=== PATIENT | female | born 1995 | race Hispanic/Latino ===

== ENCOUNTER 2021-06-12 08:03 | Outpatient (CLI) | payer BC ==
[2021-06-12 22:40] LABS: SARS-CoV-2 PCR by NAA Not Detected (NotDetected)
== END 2021-06-12 08:04 | disposition home or self-care (01) ==
LOC: CSHLAB 08:03
PROVIDERS: ATTEND Obstetrics & Gynecology
DX: Z20.822 Contact with and (suspected) exposure to COVID-19 (principal)
CPT/HCPCS: U0003; U0005

== ENCOUNTER 2021-06-15 08:11 | Inpatient (IN) | payer BC ==
[~2021-06-15 08:11] MED LIST: Bupivacaine 0.25% HCL 30 ML VIAL ONE; Lidocaine 2% MPF 10 ML AMP (For Epidural Use) ONE
[2021-06-15] MEDS ORDERED: Ondansetron PF 4 MG/2 ML Vial IVP PRN (18:17)
[2021-06-15] MEDS ORDERED: Lactated Ringer's 1,000 ML IV SCH (18:17)
[2021-06-15] MEDS ORDERED: Diphenoxylate HCl/Atropine Tablet PO PRN ×2 (18:17)
[2021-06-15] MEDS ORDERED: Docusate 100 MG CAP PO PRN (18:17)
[2021-06-15] MEDS ORDERED: NS w/ Oxytocin 30 units 500 ML IVPB SCH (18:17)
[2021-06-15] MEDS ORDERED: Ibuprofen 800 MG TAB PO PRN (18:17)
[2021-06-15] MEDS ORDERED: Zolpidem Tartrate 5 MG TAB PO PRN (18:17)
[2021-06-15] MEDS ORDERED: NS w/ Oxytocin 30 units 500 ML IV SCH (18:17)
[2021-06-15] MEDS ORDERED: Promethazine HCl 25 MG/ML VIAL IM PRN (18:17)
[2021-06-15] MEDS ORDERED: hydrALAZINE 20 MG/ML VIAL SLOW IVP PRN (18:17)
[2021-06-15] MEDS ORDERED: Acetaminophen 500 MG TAB PO PRN (18:17)
[2021-06-15] MEDS ORDERED: Lidocaine 1% (PF) 30 ML VIAL SC PRN (18:17)
[2021-06-15] MEDS ORDERED: HYDROcodone/Acetaminophen 5/325 mg Tablet PO PRN ×2 (18:17)
[2021-06-15] MEDS ORDERED: Misoprostol 200 MCG TAB PR PRN (18:17)
[2021-06-15 18:48] VITALS: BMI 38.4
[2021-06-15] MEDS: Misoprostol 100 MCG TAB VAG SCH (19:19)
[2021-06-15 20:40] LABS: Hemoglobin 12.4 g/dL (12.0-15.5); Mean Corpuscular HGB CONC 34.6 g/dL (32.0-36.0); Mean Corpuscular Hemoglobin 29.3 pg (27.0-33.0); Mean Corpuscular Volume 84.6 fl (81.6-98.3); Platelet Count 214 10x3/uL (150-450); RBC Distribution Width 13.6 % (11.5-14.5); Red Blood Cell (RBC) Count 4.23 10x6/uL (3.90-5.03); White Blood Cell (WBC) Count 11.5 10x3/uL (3.5-10.5)
[2021-06-15 21:10] LABS: HIV (1/2) Antibody/Antigen Non-Reactive (NonReactive); HIV 1/2 INDEX 0.09 S/CO (<1.00); Hep B Surf Ag Non-Reactive S/CO (NonReactive); Syphilis Antibody Nonreactive (Nonreactive); Syphilis Antibody Index 0.04 S/CO (<1.00 Non-Reactive)
[2021-06-15 21:24] LABS: HBSAg Index 0.18 S/CO (0-0.99)
[2021-06-15] MEDS: Butorphanol Tartrate 1 MG/ML VIAL SLOW IVP PRN (23:39)
[2021-06-16] MEDS: Butorphanol Tartrate 1 MG/ML VIAL SLOW IVP PRN ×3 (04:23→19:25)
[2021-06-16] MEDS: Misoprostol 100 MCG TAB VAG SCH (07:37)
[2021-06-16] MEDS: NS w/ Oxytocin 30 units 500 ML IV SCH (11:16)
[2021-06-16] MEDS ORDERED: Fentanyl 2 mcg/Bup 0.1% Cadd 100 ML ONE (20:48)
[2021-06-17] MEDS ORDERED: Fentanyl 2 mcg/Bup 0.1% Cadd 100 ML ONE (04:19)
[2021-06-17] MEDS ORDERED: Ondansetron PF 4 MG/2 ML Vial IVP PRN ×2 (05:18→13:22)
[2021-06-17] MEDS ORDERED: Hydrocerin (Eucerin) Cream 120 gm Jar TOP PRN (05:18)
[2021-06-17] MEDS ORDERED: ePHEDrine Sulfate 50 MG/10 ML VIAL SLOW IVP PRN (05:18)
[2021-06-17] MEDS ORDERED: Lactated Ringer's 500 ML IV PRN (05:18)
[2021-06-17] MEDS ORDERED: Acetaminophen 325 MG TAB PO PRN (05:18)
[2021-06-17] MEDS ORDERED: Naloxone HCl 0.4 mg/ml Vial IVP PRN ×2 (05:18)
[2021-06-17] MEDS ORDERED: Promethazine HCl 25 MG/ML VIAL IM PRN (05:18)
[2021-06-17] MEDS ORDERED: diphenhydrAMINE 50 MG/ML VIAL IVP PRN (05:18)
[2021-06-17] MEDS ORDERED: Fentanyl 2 mcg/Bupivacaine 0.1% Cassette 100 ML EPIDURAL SCH (05:30)
[2021-06-17] MEDS ORDERED: Communication Order-Pharmacy FS SCH (05:30)
[2021-06-17] MEDS ORDERED: Misoprostol 200 MCG TAB ONE (11:14)
[2021-06-17] MEDS ORDERED: Methylergonovine 0.2 MG/ML VIAL ONE (11:15)
[2021-06-17] MEDS ORDERED: Ampicillin 2 GM VIAL ONE (12:55)
[2021-06-17] MEDS ORDERED: Ampicillin 2 GM in Sodium Chloride 0.9% 100 ML IVPB SCH (13:00)
[2021-06-17] MEDS ORDERED: Acetaminophen 500 MG TAB PO SCH (13:00)
[2021-06-17] MEDS ORDERED: Benzocaine-Menthol 82.5 ML CAN TOP PRN (13:22)
[2021-06-17] MEDS ORDERED: Preparation H Ointment 28 GM TUBE PR PRN (13:22)
[2021-06-17] MEDS ORDERED: Milk Of Magnesia 30 ML UDCUP PO PRN (13:22)
[2021-06-17] MEDS ORDERED: Bisacodyl 10 MG SUPP PR PRN (13:22)
[2021-06-17] MEDS ORDERED: diphenhydrAMINE 25 MG CAP PO PRN (13:22)
[2021-06-17] MEDS ORDERED: Misoprostol 200 MCG TAB VAG PRN (13:22)
[2021-06-17] MEDS ORDERED: Boostrix 0.5 ML (Tdap) VIAL IM ONE (13:22)
[2021-06-17] MEDS ORDERED: hydrALAZINE 20 MG/ML VIAL SLOW IVP PRN ×2 (13:22→13:27)
[2021-06-17] MEDS ORDERED: Lanolin Ointment 7 GM TUBE TOP PRN (13:22)
[2021-06-17] MEDS ORDERED: NS w/ Oxytocin 30 units 500 ML IV SCH (13:30)
[2021-06-17] MEDS: NS w/ Oxytocin 30 units 500 ML IV SCH (13:51)
[2021-06-17] MEDS: Ibuprofen 800 MG TAB PO SCH ×2 (15:43→23:23)
[2021-06-17] MEDS: Ferrous Sulfate 325 MG TAB PO SCH (18:53)
[2021-06-17] MEDS ORDERED: HYDROcodone/Acetaminophen 5/325 mg Tablet PO PRN (19:19)
[2021-06-17] MEDS: Docusate Calcium (SURFAK) 240 MG CAP PO SCH (23:23)
[2021-06-18] MEDS ORDERED: Enoxaparin Sodium 40 MG/0.4 ML SYRINGE SC SCH ×3 (01:00→21:00)
[2021-06-18 05:17] LABS: Hemoglobin 10.4 g/dL (12.0-15.5); Mean Corpuscular Hemoglobin 29.8 pg (27.0-33.0); Mean Corpuscular Volume 87.7 fl (81.6-98.3); Mean Platelet Volume 10.9 fl (7.4-10.4); Platelet Count 171 10x3/uL (150-450); RBC Distribution Width 13.7 % (11.5-14.5); Red Blood Cell (RBC) Count 3.49 10x6/uL (3.90-5.03); White Blood Cell (WBC) Count 14.7 10x3/uL (3.5-10.5)
[2021-06-18] MEDS: Ibuprofen 800 MG TAB PO SCH ×3 (06:00→21:23)
[2021-06-18] MEDS: Ferrous Sulfate 325 MG TAB PO SCH ×2 (08:52→16:49)
[2021-06-18] MEDS: Prenatal Vitamin 1 TAB PO SCH (08:55)
[2021-06-18] MEDS: Docusate Calcium (SURFAK) 240 MG CAP PO SCH ×2 (08:55→21:23)
[2021-06-18] MEDS: Misoprostol 100 MCG TAB VAG SCH (09:37)
[2021-06-18] MEDS: HYDROcodone/Acetaminophen 5/325 mg Tablet PO PRN (10:17)
[2021-06-19] MEDS: Ibuprofen 800 MG TAB PO SCH ×2 (05:12→13:21)
[2021-06-19] MEDS: Docusate Calcium (SURFAK) 240 MG CAP PO SCH (08:13)
[2021-06-19] MEDS: Ferrous Sulfate 325 MG TAB PO SCH ×2 (08:13→16:27)
[2021-06-19] MEDS: Prenatal Vitamin 1 TAB PO SCH (08:13)
[2021-06-19 08:18] VITALS: BP 136/65; TEMP 97.4
[2021-06-19] MEDS: HYDROcodone/Acetaminophen 5/325 mg Tablet PO PRN (13:21)
== END 2021-06-19 18:30 | disposition home or self-care (01) | DRG 806 ==
LOC: CSHLD 18:10 → CSHPED 06-17 16:15
PROVIDERS: ADMIT Obstetrics & Gynecology; ATTEND Obstetrics & Gynecology
PROC: 10D07Z6 Extraction of Products of Conception, Vacuum, Via Natural or Artificial Opening (ICD-10-PCS; principal; 2021-06-17)
PROC: 0KQM0ZZ Repair Perineum Muscle, Open Approach (ICD-10-PCS; 2021-06-17)
PROC: 0W8NXZZ Division of Female Perineum, External Approach (ICD-10-PCS; 2021-06-17)
PROC: 10907ZC Drainage of Amniotic Fluid, Therapeutic from Products of Conception, Via Natural or Artificial Opening (ICD-10-PCS; 2021-06-17)
PROC: 3E0P7VZ Introduction of Hormone into Female Reproductive, Via Natural or Artificial Opening (ICD-10-PCS; 2021-06-17)
DX: O99.12 Other diseases of the blood and blood-forming organs and certain disorders involving the immune mechanism complicating childbirth (principal); D68.61 Antiphospholipid syndrome; Z37.0 Single live birth; Z3A.38 38 weeks gestation of pregnancy; M32.9 Systemic lupus erythematosus, unspecified; O10.92 Unspecified pre-existing hypertension complicating childbirth; O70.1 Second degree perineal laceration during delivery; O99.892 Other specified diseases and conditions complicating childbirth
CPT/HCPCS: 36415; 51702; 85027; 86780; 86850; 86900; 86901; 87340; 87389; J0290; J0595; J1650; J2590; J3490; S0020; U0003; U0005

== ENCOUNTER 2023-04-03 18:37 | Emergency (ER) | payer BC | END 2023-04-03 19:49 | disposition home or self-care (01) | LOC: CSHERS 18:37 | DX: S92.352A Displaced fracture of fifth metatarsal bone, left foot, initial encounter for closed fracture (principal); N18.1 Chronic kidney disease, stage 1; W19.XXXA Unspecified fall, initial encounter ==